=== PATIENT | male | born 1995 | race African-American/Black ===

== ENCOUNTER 2016-12-18 12:52 | Emergency (ER) | payer OTHER ==
[2016-12-18 13:15] VITALS: BP 143/95; PULSE 70; TEMP 97.7; BMI 26.4
[2016-12-18] MEDS ORDERED: DIPHTH,PERTUSS(ACELL),TET 0.5 ML DISP.SYRIN IM ONE (14:27)
--- NOTE | 2016-12-18 14:35 | PDOC ---
History of Present Illness - General Stated Complaint: LACERATION Time Seen by Provider: 12/18/16 14:23 History Source: Patient Exam Limitations: No Limitations - History of Present Illness Initial Comments: 12/18/16 14:29 Patient is a 21-year-old male, no significant medical history currently on no medication. Patient presents for evaluation of partial distal left second finger avulsion. Patient reports cutting lettuce turn his head for one second and cut tip of finger. At urgent care [facility] the [facility] from Hospital who applied Gelfoam and then send patient to emergency Department. Reports that area was still bleeding however on arrival area with no active bleeding. Tetanus is not up-to-date. Past Medical History: Denies. Allergies: No known allergies Medications: None Family History: Non-contributory Social History: Denies smoking, alcohol use, or IVDU Review of Systems GENERAL/CONSTITUTIONAL: No fever or chills. No weakness. No weight change. HEAD, EYES, EARS, NOSE AND THROAT: No change in vision. No ear pain or discharge. No sore throat. CARDIOVASCULAR: No chest pain or shortness of breath. RESPIRATORY: No cough, wheezing, or hemoptysis. GASTROINTESTINAL: No nausea, vomiting, diarrhea or constipation. No rectal bleeding. GENITOURINARY: No dysuria, frequency, or change in urination. MUSCULOSKELETAL: No joint or muscle swelling or pain. No neck or back pain. SKIN : No rash or easy bruising. Physical Exam: GENERAL: The patient is awake, alert, and fully oriented, in no acute distress. EYES: Pupils equal, round and reactive to light, extraocular movements intact, sclera anicteric, conjunctiva clear. ENT: Ears normal, nares patent, oropharynx clear without exudates. Moist mucous membranes. No uvula deviation NECK: Normal range of motion, supple without lymphadenopathy, JVD, or masses. LUNGS: Breath sounds equal, clear to auscultation bilaterally. No wheezes, and no crackles. HEART: Regular rate and rhythm, normal S1 and S2 without murmur, rub or gallop. ABDOMEN: Soft, nontender, normoactive bowel sounds. No guarding, no rebound. No masses. No bruising or abrasions MUSCULOSKELETAL: Normal range of motion, no edema. No clubbing or cyanosis. No cords, erythema, or tenderness. No CVA Tenderness with fist. NEUROLOGICAL: Cranial nerves II through XII grossly intact. Normal speech, normal gait. SKIN: Warm, Dry, normal turgor, no rashes or lesions noted. Medial distal left second finger skin avulsion with right lateral nail avulsion. Past History - Past Medical History Allergies/Adverse Reactions: Allergies Allergy/AdvReac Type Severity Reaction Status Date / Time No Known Allergies Allergy Verified 12/18/16 13:15 Home Medications: Ambulatory Orders Cephalexin [Keflex] 500 mg PO TID #15 capsule 12/18/16 - Immunization History Immunization Up to Date: No - Suicide/Smoking/Psychosocial Hx Smoking History: Current every day smoker Number of Cigarettes Smoked Daily: 4 Information on smoking cessation initiated: No Hx Alcohol Use: No Drug/Substance Use Hx: Yes (marijuana) Substance Use Type: None *Physical Exam - Vital Signs Last Vital Signs Temp Pulse Resp BP Pulse Ox 97.7 F 70 18 143/95 100 12/18/16 13:10 12/18/16 13:10 12/18/16 13:10 12/18/16 13:10 12/18/16 13:10 Medical Decision Making - Medical Decision Making 12/18/16 14:35 A/P: Patient here for partial medial fingertip avulsion. Gelfoam is in place, no active bleeding, Boostrix given. Will apply nonstick dressing, patient to keep Gelfoam intact until it falls off on its own. To follow-up with primary care doctor. If any increased redness, swelling or signs of infection return to the ER. Will discharge on kelfex for 5 days. Keep area dry and intact. Explained to patient that he needs to leave area clean and dry, allow for the gelfoam to fall off on its own. Follow up with plastics as needed. *DC/Admit/Observation/Transfer Diagnosis at time of Disposition: Avulsion, finger tip Qualifiers: Encounter type: initial encounter Qualified Code(s): S61.209A - Unspecified open wound of unspecified finger without damage to nail, initial encounter; S61.209A - Unspecified open wound of unspecified finger without damage to nail, initial encounter - Discharge Dispostion Disposition: HOME Condition at time of disposition: Good Admit: No - Prescriptions Prescriptions: Cephalexin [Keflex] 500 mg PO TID #15 capsule - Referrals Referrals: Suraj Awan MD [Staff Physician] - - Patient Instructions Additional Instructions: Please keep area clean and dry for as long as possible Please leave the Gelfoam intact, it will fall off on its own and active with scab Please keep area covered, may take dressing off tomorrow assess area for any increased redness swelling or signs of infection start antibiotic - Post Discharge Activity Forms/Work/School Notes: Back to Work
== END 2016-12-18 15:06 | disposition home or self-care (01) ==
LOC: JERFT 12:52
PROC: 3E0234Z Introduction of Serum, Toxoid and Vaccine into Muscle, Percutaneous Approach (ICD-10-PCS; principal; 2016-12-18)
DX: S61.201D Unspecified open wound of left index finger without damage to nail, subsequent encounter (principal); W26.0XXD Contact with knife, subsequent encounter
CPT/HCPCS: 90715; 99281-25